=== PATIENT | female | born 1990 | race African-American/Black ===

== ENCOUNTER 2018-05-25 11:21 | Emergency (ER) | payer SELFPAY ==
[2018-05-25 11:33] VITALS: BP 137/77; PULSE 79; TEMP 98; BMI 42.0
--- NOTE | 2018-05-25 12:16 | PDOC ---
History of Present Illness - General Chief Complaint: Injury Stated Complaint: INJURY Time Seen by Provider: 05/25/18 11:35 - History of Present Illness Initial Comments: 05/25/18 12:10 27-year-old female without comorbidities, denies . Presents for evaluation of right shoulder right fifth finger and right ankle pain after a fall yesterday. She denies hitting her head her fall was mechanical in nature she states she tripped. No loss of consciousness postinjury vomiting nausea or visual changes. Past History - Past Medical History Allergies/Adverse Reactions: Allergies Allergy/AdvReac Type Severity Reaction Status Date / Time No Known Allergies Allergy Verified 05/25/18 11:58 Home Medications: Ambulatory Orders Cephalexin Monohydrate [Keflex -] 500 mg PO BID #14 capsule 09/04/14 COPD: No Liver Disease: No - Surgical History Lung Surgery: No - Immunization History Immunization Up to Date: Yes - Suicide/Smoking/Psychosocial Hx Smoking History: Never smoked Have you smoked in the past 12 months: No Information on smoking cessation initiated: No Hx Alcohol Use: No Drug/Substance Use Hx: No Substance Use Type: None Review of Systems - Review of Systems Musculoskeletal: Yes: Joint Pain *Physical Exam - Vital Signs Last Vital Signs Temp Pulse Resp BP Pulse Ox 98.0 F 79 16 137/77 100 05/25/18 11:24 05/25/18 11:24 05/25/18 11:24 05/25/18 11:24 05/25/18 11:24 - Physical Exam Comments: 05/25/18 12:11 Right hand fifth finger skin color and temperature are normal there is a small superficial abrasion on the dorsum of the PIPJ. FDS and FDP were independently. There is tenderness over the PIPJ with decreased range of motion and pain at terminal flexion. FDS and FDP were independently Right shoulder range of motion is limited in external rotation and abduction she is unable to tolerate impingement maneuvers her rotator cuff strength testing. She has no gross sensorimotor deficits in the right upper extremity Right ankle skin color and temperature are normal is mild swelling about the lateral aspect of the right ankle tenderness over the ATFL and distal tip of the lateral malleolus no tenderness about the proximal fibula or along its distal course she is unable to tolerate stability or strength testing she's neurovascularly intact Moderate Sedation - Procedure Monitoring Vital Signs: Procedure Monitoring Vital Signs Temperature 98.0 F 12/10/18 11:24 Pulse Rate 79 05/25/18 11:24 Respiratory Rate 16 05/25/18 11:24 Blood Pressure 137/77 05/25/18 11:24 O2 Sat by Pulse Oximetry (%) 100 05/25/18 11:24 ED Treatment Course - RADIOLOGY Radiology Studies Ordered: Category Date Time Status ANKLE-RIGHT [RAD] Stat Radiology 05/25/18 11:45 Taken FINGER(S) RIGHT [RAD] Stat Radiology 05/25/18 11:45 Taken SHOULDER-RIGHT [RAD] Stat Radiology 05/25/18 11:45 Taken Medical Decision Making - Medical Decision Making 05/25/18 12:16 X-rays of the right shoulder fifth finger and ankle show no evidence of fracture trimer destructive process *DC/Admit/Observation/Transfer Diagnosis at time of Disposition: Ankle sprain, Shoulder strain, Finger sprain - Discharge Dispostion Disposition: HOME Condition at time of disposition: Stable Decision to Admit order: No - Referrals Referrals: Freddie Santo MD [Staff Physician] - - Patient Instructions Printed Discharge Instructions: Ankle Sprain, DI for Ankle Sprain, DI for Finger Sprain Additional Instructions: He may take Tylenol and Motrin as directed for pain. Return to the emergency room should symptoms worsen. Follow-up with orthopedic surgery in 2-3 days for further evaluation and treatment options. He may weight-bear as tolerated with use of the Karl wrap and crutches. - Post Discharge Activity
== END 2018-05-25 12:33 | disposition home or self-care (01) ==
LOC: JERFT 11:21
DX: S93.401A Sprain of unspecified ligament of right ankle, initial encounter (principal); S46.911A Strain of unspecified muscle, fascia and tendon at shoulder and upper arm level, right arm, initial encounter; S63.616A Unspecified sprain of right little finger, initial encounter; W18.39XA Other fall on same level, initial encounter; Y93.89 Activity, other specified; Y92.89 Other specified places as the place of occurrence of the external cause
CPT/HCPCS: 73030-TC-RT-FY; 73140-TC-RT-FY; 73610-TC-RT-FY; 99281-25